=== PATIENT | female | born 1975 | race Hispanic/Latino ===

== ENCOUNTER 2022-01-14 05:20 | Emergency (ER) | payer OTHER ==
[2022-01-14] MEDS ORDERED: SODIUM CHLORIDE 0.9% 1000 ML 1,000 ML IV ONE (08:25)
[2022-01-14] MEDS ORDERED: fentaNYL 100 MCG/2 ML INJ IV ONE ×2 (08:28→17:53)
--- NOTE | 2022-01-14 08:33 | Emergency Department Report ---
ED Syncope HPI - General Chief Complaint: Syncope Stated Complaint: SYNCOPE Time Seen by Provider: 01/14/22 07:08 - History of Present Illness Initial Comments: 46-year-old female with a history of cardiomyopathy from massive myocardial infarction in 2019 and with short course of pacemaker defibrillator who now presents with syncope x2 overnight. According to patient she initially got up around 11:00 last night to use the bathroom and then started feeling dizzy then fell. She was helped back to the bed by her and son and did not get up until around 2 AM to use the bathroom again. She says she got to the bathroom finished urinating then started feeling dizzy again and fell to the ground. At this point the observe her call out to be carrasco and advised that they take her to the hospital. EMS was called and patient transported to the emergency room. She denies any chest pain or shortness of breath specifically but generalized joint headaches, including tailbone and back of the head. Patient also have history of pulmonary embolism and currently on blood thinner. No other modifying or positive factors reported. Timing/Prior Episodes: multiple episodes today - Related Data Allergies/Adverse Reactions: Allergies Iodinated Contrast Media Allergy (Verified 01/14/22 05:39) Unknown ketorolac [From Toradol] Allergy (Verified 01/14/22 05:39) Unknown Sulfa (Sulfonamide Antibiotics) Allergy (Verified 01/14/22 05:39) Unknown ED Review of Systems ROS: Stated complaint: SYNCOPE Other details as noted in HPI Comment: All other systems reviewed and negative Cardiovascular: syncope Musculoskeletal: back pain, arthralgia, myalgia ED Past Medical Hx - Social History Smoking Status: Unknown if ever smoked ED Physical Exam - General Limitations: No Limitations General appearance: alert, in no apparent distress - Head Head exam: Present: normal inspection - Eye Eye exam: Present: normal appearance Pupils: Present: normal accommodation - ENT ENT exam: Present: normal exam, normal orophraynx, mucous membranes moist - Neck Neck exam: Present: normal inspection, full ROM. Absent: tenderness - Respiratory Respiratory exam: Present: normal lung sounds bilaterally. Absent: respiratory distress, accessory muscle use - Cardiovascular Cardiovascular Exam: Present: regular rate, normal rhythm, normal heart sounds - GI/Abdominal GI/Abdominal exam: Present: soft, normal bowel sounds. Absent: distended, tenderness - Extremities Exam Extremities exam: Present: normal inspection, tenderness (Bilateral anterior knee and bilateral lateral malleolus). Absent: pedal edema - Back Exam Back exam: Present: normal inspection, tenderness (tenderness to lumbar area of the spine--) ED Course Vital Signs 01/14/22 01/14/22 01/14/22 05:36 06:00 06:03 Temperature 99.2 F Pulse Rate 78 Respiratory 16 Rate Blood Pressure Blood Pressure 82/48 [Right] O2 Sat by Pulse 99 95 99 Oximetry 01/14/22 01/14/22 01/14/22 06:04 06:15 06:31 Temperature 98 F Pulse Rate 76 74 73 Respiratory 16 17 11 L Rate Blood Pressure 111/84 111/84 Blood Pressure 111/84 [Right] O2 Sat by Pulse 98 90 94 Oximetry 01/14/22 01/14/22 01/14/22 06:45 07:01 07:15 Temperature Pulse Rate 72 Respiratory 13 Rate Blood Pressure 111/84 84/33 84/33 Blood Pressure [Right] O2 Sat by Pulse 90 92 96 Oximetry 01/14/22 01/14/22 01/14/22 07:31 07:45 08:01 Temperature Pulse Rate 70 70 68 Respiratory 21 13 13 Rate Blood Pressure 84/33 91/34 94/39 Blood Pressure [Right] O2 Sat by Pulse 95 92 92 Oximetry 01/14/22 01/14/22 01/14/22 08:15 08:31 08:45 Temperature Pulse Rate 67 67 68 Respiratory 13 12 12 Rate Blood Pressure 81/28 81/31 81/39 Blood Pressure [Right] O2 Sat by Pulse 90 93 92 Oximetry 01/14/22 01/14/22 01/14/22 09:01 09:15 09:31 Temperature Pulse Rate 67 76 77 Respiratory 11 L 13 13 Rate Blood Pressure 85/38 99/37 99/37 Blood Pressure [Right] O2 Sat by Pulse 98 97 95 Oximetry 01/14/22 01/14/22 01/14/22 09:45 10:01 10:15 Temperature Pulse Rate 76 77 69 Respiratory 12 15 17 Rate Blood Pressure 98/32 96/51 106/43 Blood Pressure [Right] O2 Sat by Pulse 97 97 97 Oximetry 01/14/22 01/14/22 01/14/22 10:31 10:45 11:01 Temperature Pulse Rate 68 67 65 Respiratory 14 11 L 12 Rate Blood Pressure 99/49 99/49 103/33 Blood Pressure [Right] O2 Sat by Pulse 96 83 L 89 Oximetry 01/14/22 01/14/22 01/14/22 11:15 11:31 11:45 Temperature Pulse Rate 65 65 65 Respiratory 22 13 13 Rate Blood Pressure 94/31 86/32 82/34 Blood Pressure [Right] O2 Sat by Pulse 88 90 91 Oximetry 01/14/22 12:01 Temperature Pulse Rate 69 Respiratory 10 L Rate Blood Pressure 88/37 Blood Pressure [Right] O2 Sat by Pulse 92 Oximetry - Reevaluation(s) Reevaluation #1: 01/14/22 08:33 here with syncope episode with fall and back pain and head pain -- given fentanyl for pain and 1 L IV fluids for hydration while waiting for labs and imaging. Reevaluation #2: 01/14/22 08:38 Noted with initial 11/84 then to 84/33 mmHg-- this could be a contributing factor to her syncope as well-- will continue aggressive hydration-- Reevaluation #3: 01/14/22 10:28 pt continue to reports pain and crying after given fentanyl 50 mcg IV x1 we will go ahead and give another 5 mg, Benadryl 50 mg, and Ativan 2 mg IV x1 for symptomatic relief. 01/14/22 13:47 Pt reports improvement in symptoms and CT head and Lumbar did not show any acute findings-- including the XRAy bilateral knee and ankle-- pt reassured and also noted improvement in blood pressure with ivf hydration-- ED Medical Decision Making - Lab Data Result diagrams: 01/14/22 09:25 01/14/22 09:25 - EKG Data -: EKG Interpreted by Me EKG shows normal: sinus rhythm Rate: normal - EKG Data 01/14/22 08:35 Noted with normal sinus rhythm at a rate of 72 bpm, with no specific ST depression or elevation in this abnormal ECG. - Medical Decision Making Here with palpitation associated with syncope episode x 2 while getting up from sleep overnight-- this is likely vasovagal related considering that she was just getting up from sleep or related to hypotension-- but differential could be and not limited to seizure, symptomatic anemia, myocardial infarction, pulmonary embolism, anxiety, CVA especially posterior stroke or thyroid abnormality--in order to rule those out I will go ahead and order routine cardiopulmonary work- up that include troponin, EKG, chest x-ray, BNP, CKMB, and CBC, CMP, Urinalysis and thyroid panel for any correctable infectious process or electrolyte abnormality as a cause. Will also order CT brain for any intracranial abnormality as mentioned above. In the meantime will give ivf ns 1L bolus for hydration as most are dehydrated. Vital sign stable at this pain with no EKG changes. Critical care attestation.: If time is entered above; I have spent that time in minutes in the direct care of this critically ill patient, excluding procedure time. ED Disposition Clinical Impression: Syncope and collapse Hypotension Qualifiers: Hypotension type: unspecified hypotension type Qualified Code(s): I95.9 - Hypotension, unspecified Knee pain, bilateral Qualifiers: Chronicity: unspecified Qualified Code(s): M25.561 - Pain in right knee Lower back pain Qualifiers: Chronicity: unspecified Back pain laterality: bilateral Sciatica presence: unspecified whether sciatica present Qualified Code(s): M54.50 - Low back pain, unspecified Disposition: 01 HOME / SELF CARE / HOMELESS Is pt being admited?: No Does the pt Need Aspirin: No Condition: Stable Instructions: Syncope (ED), How to Use Cold Therapy, [id number], Near- Syncope, [id number]-[id number], Acute Knee Pain, Adult, [id number], How to Use a Knee Brace, Hypotension, Npoy-cy-Komp Additional Instructions: Increase your daily fluid to help your hydration to prevent hypotension Call and follow-up with your primary doctor in the next 3 to 5 days for progress It is okay to follow the printed instruction on how to use cold therapy for your bruise muscle and joint discomfort Please do not hesitate to call or return to emergency if your symptoms worsen Referrals: COMPA CUMMINS MD [Referring] - 3-5 Days Time of Disposition: 13:53
--- NOTE | 2022-01-14 09:08 | XRay Report ---
AP AND LATERAL VIEWS OF BOTH ANKLES INDICATION / CLINICAL INFORMATION: fall with bilateral ankle pain COMPARISON: None available. FINDINGS: BONES / JOINT(S): No acute fracture or subluxation. No significant arthritis. SOFT TISSUES: No significant abnormality. ADDITIONAL FINDINGS: None. IMPRESSION: 1. No acute findings. Signer Name: Pancho Glynn MD Signed: 01/14/2022 9:04 AM Workstation Name: [id number]
--- NOTE | 2022-01-14 09:48 | XRay Report ---
XR knee BILAT 1-2V INDICATION / CLINICAL INFORMATION: fall with pain. COMPARISON: None available. FINDINGS: No acute fracture. Postoperative clips along the right knee. Normal alignment. Joint spaces are pre served. No destructive osseous lesion or suspicious periosteal reaction. Impression: 1.No acute fracture. Signer Name: Tashi Wright MD Signed: 01/14/2022 9:44 AM Workstation Name: [email or web address]
[2022-01-14 10:03] LABS: Basophils % (Auto) 0.3 % (0.0-1.8); Eosinophils # (Auto) 0.7 K/mm3 (0.0-0.4); Eosinophils % (Auto) 3.6 % (0.0-4.3); Hematocrit 29.9 % (30.3-42.9); Hemoglobin 9.4 gm/dl (10.1-14.3); Lymphocytes # (Auto) 3.5 K/mm3 (1.2-5.4); Lymphocytes % (Auto) 19.3 % (13.4-35.0); Mean Corpuscular HGB Conc 32 % (30-34); Mean Corpuscular Volume 80 fl (79-97); Monocytes # (Auto) 0.3 K/mm3 (0.0-0.8); Monocytes % (Auto) 1.6 % (0.0-7.3); Platelet Count 484 K/mm3 (140-440); Red Blood Count 3.72 M/mm3 (3.65-5.03)
[2022-01-14 10:08] LABS: Red Cell Distribution Width 22.3 % (13.2-15.2)
[2022-01-14 10:11] LABS: INR 1.22 (0.87-1.13)
[2022-01-14] MEDS ORDERED: HALOPERIDOL LACTATE 5 MG/1 ML INJ IM ONE (10:27)
[2022-01-14] MEDS ORDERED: LORazepam 2 MG/ML VIAL IV ONE (10:27)
[2022-01-14] MEDS ORDERED: diphenhydrAMINE 50 MG/ML VIAL IV ONE (10:27)
[2022-01-14 10:46] LABS: Albumin 2.8 g/dL (3.9-5); BUN/Creatinine Ratio 17; Blood Urea Nitrogen 26 mg/dL (7-17); Hemolysis Index 25
[2022-01-14 10:58] LABS: Alanine Aminotransferase < 5 units/L (7-56); Free T4 (Free Thyroxine) 0.99 ng/dL (0.76-1.46)
--- NOTE | 2022-01-14 13:05 | Cat Scan Report ---
CT BRAIN: 01/14/2022 INDICATION / CLINICAL INFORMATION: stroke. Leg weakness. COMPARISON: None available. FINDINGS: BRAIN/INTRACRANIAL STRUCTURES: Unenhanced CT images of the brain demonstrate no evidence of acute abn ormality. Ventricles and sulci are prominent in size for a patient of this age, consistent with diffuse cerebra l atrophy. There is no evidence of acute large vessel territory ischemic injury, hemorrhage, or mass. There are no abnormal extra-axial fluid collections. EXTRACRANIAL STRUCTURES: Unremarkable. IMPRESSION: No acute abnormality. Cerebral atrophic change. All CT scans at this location are performed using dose reduction to ALARA by means of automated expos ure control. Signer Name: Abhinav Jones MD Signed: 01/14/2022 1:00 PM Workstation Name: [id number]
--- NOTE | 2022-01-14 13:12 | Cat Scan Report ---
CT LUMBAR SPINE: 01/14/2022 INDICATION / CLINICAL INFORMATION: lbp with fall. COMPARISON: None available. FINDINGS: CT images of the lumbar spine were obtained. Images are evaluated in the axial, coronal, and sagittal planes. There is no evidence of acute abnormality. Slight left convex scoliosis is centered at the L4 level. Vertebral body height and alignment is othe rwise unremarkable. There is normal CT appearance to the intervertebral discs and facet joints. PARASPINAL STRUCTURES: Unremarkable. IMPRESSION: No acute abnormality. All CT scans at this location are performed using dose reduction to ALARA by means of automated expos ure control. Signer Name: Abhinav Jones MD Signed: 01/14/2022 1:08 PM Workstation Name: [id number]
[2022-01-14] MEDS ORDERED: oxyCODONE /ACETAMINOPHEN 5-325MG TAB PO ONE (16:53)
--- NOTE | 2022-01-14 16:56 | Event Note ---
Date: 01/14/22 Patient is normotensive now I will discharge patient home
[2022-01-14 18:43] VITALS: BP 113/43
--- NOTE | 2022-01-14 18:58 | Electrocardiograph Report ---
[facility] Test Date: 2022-01-14 Test Time: 06:47:23 Pat Name: CHERI JO Department: Room: Gender: F Human Services Manager: WAI : [id number] Requested By: MILLIE BURGOS Order Number: [id number] Reading MD: Alverto Cherry Measurements Intervals [place] Rate: 72 P: 62 PA: 142 QRS: 37 QRSD: 85 T: 75 QT: 446 QTc: 488 Interpretive Statements Sinus rhythm Anteroseptal infarct, age indeterminate No previous ECG available for comparison Electronically Signed On 01-14-2022 18:58:34 EDT by Alverto Cherry
== END 2022-01-14 19:09 | disposition home or self-care (01) ==
LOC: ED 05:20
DX: I95.9 Hypotension, unspecified (principal); R55 Syncope and collapse; M54.50 Low back pain, unspecified; M25.561 Pain in right knee; Z88.2 Allergy status to sulfonamides; Z88.8 Allergy status to other drugs, medicaments and biological substances; Z91.041 Radiographic dye allergy status
CPT/HCPCS: 36415; 70450; 72131; 73560; 73600; 80053; 84439; 84443; 84484; 84703; 85025; 85610; 93005; 96361; 96372; 96374; 96375; 96376; 99285; J1200; J1630; J2060; J3010; J7030